=== PATIENT | male | born 1995 | race Caucasian/White ===

== ENCOUNTER 2020-09-13 02:38 | Inpatient (IN) ==
[2020-09-13] MEDS ORDERED: SODIUM CHLORIDE 0.9% 1,000 ML IV STA ×2 (02:45→03:34)
[2020-09-13] MEDS ORDERED: ROCURONIUM 100 MG/10 ML VIAL IV STA (02:46)
[2020-09-13] MEDS ORDERED: ETOMIDATE 20 MG/10 ML VIAL IV STA (02:46)
[2020-09-13 02:56] LABS: Basophils # 0.2 10*3/uL (0.0-0.2); Basophils % 0.4 % (0.0-0.8); Eosinophils # 0.4 10*3/uL (0.0-0.87); Eosinophils % 0.9 % (0.00-10.9); Hematocrit 49.9 VOL% (42.0-52.0); Hemoglobin 17.5 GM/DL (14.0-18.0); Immature Granulocytes % 3.3 %; Immature Granulocytes Absolute 1.67 #; Lymphocytes # 11.9 10*3/uL (1.4-4.0); Lymphocytes % 23.8 % (21.2-54.2); Mean Corpuscular HGB Conc 35.1 GM/DL (32-36); Mean Corpuscular Volume 86.8 FL (87-102); NRBC # 0.02 10*3/uL; Neutrophils % 66.6 % (38.7-73.9); Platelet Count 410 T/CUMM (130-400); Red Blood Count 5.75 MC/CUMM (3.8-5.5); Red Cell Distribution Width 12.3 % (9.3-17.3)
[2020-09-13 03:02] LABS: White Blood Count 50.1 T/CUMM (4-12)
[2020-09-13] MEDS ORDERED: PIPERACILLIN/TAZOBACTAM 3,375 MG in SODIUM CHLORIDE 0.9% 100 ML IV STA (03:04)
[2020-09-13 03:12] LABS: Alanine Aminotransferase 34 U/L (16-61); Albumin 4.2 G/DL (3.4-5.0); Alkaline Phosphatase 75 U/L (45-117); Aspartate Amino Transferase 51 U/L (0-37); Blood Urea Nitrogen 16 MG/DL (7-18); Calcium 8.2 MG/DL (8.5-10.1); Estimated Glom Filtration Rate 63 ML/MIN; Glucose 267 MG/DL (74-106); Total Protein 7.3 G/DL (6.4-8.3)
[2020-09-13 03:15] LABS: Bilirubin,Urine Negative (Negative); Blood, Urine Negative (Negative); Glucose,Urine (UA) Negative (Negative); Hyaline Casts,Urine 1 /LPF (0-3); Ketones,Urine Negative (Negative); Mucus,Urine Occasional /LPF (Occasional); Nitrite,Urine Negative (Negative); Protein,Urine Negative; RBC,Urine <1 /HPF (0-4); Urine Appearance CLEAR (Clear); Urine Color Yellow (Yellow); Urine Specific Gravity 1.019 (1.001-1.035); Urine Urobilinogen < 2.0 EU/DL (0.2-1.0); WBC,Urine <1 /HPF (0-6)
[2020-09-13 03:16] LABS: ABG Base Excess -7.1 MMOL/L (-2.5-2.5); ABG HCO3 18.5 MMOL/L (20-26); ABG Oxygen Saturation 86.3 % (95-100); ABG PO2 68.1 MM HG (80-95); ABG TCO2 23.3 MMOL/L (23-27); Allen Test Positive; Pt O2 Delivery Device Ventilator
[2020-09-13 03:19] LABS: ABG PH 7.122 (7.35-7.45)
[2020-09-13 03:27] LABS: Barbiturates Screen,Urine Negative (Negative); Benzodiazepines Screen,Urine Positive (Negative); Cannabinoid Screen,Urine Positive (Negative); Opiate Screen,Urine Negative (Negative); Phencyclidine Screen,Urine Negative (Negative)
[2020-09-13] MEDS ORDERED: ONDANSETRON 4 MG/2 ML VIAL IV PRN (04:00)
[2020-09-13] MEDS ORDERED: ALBUTEROL 2.5 MG/3 ML NEB RESP TX PRN (04:00)
[2020-09-13 04:13] LABS: Band Neutrophils 12 % (0-10); Eosinophils 1 % (0-10); Lymphocytes 26 % (20-55); Metamyelocytes 1 %; Segmented Neutrophils 53 % (50-85); Total Cells Counted 100
[2020-09-13 04:16] LABS: Platelet Estimate Normal
[2020-09-13] MEDS: SODIUM CHLORIDE 0.9% 1,000 ML IV SCH ×3 (05:01→21:06)
[2020-09-13 05:07] LABS: ABG Base Excess -8.2 MMOL/L (-2.5-2.5); ABG HCO3 20.5 MMOL/L (20-26); ABG PCO2 54.7 MM HG (35-48); ABG TCO2 22.1 MMOL/L (23-27); Allen Test Positive; Pt O2 Delivery Device Ventilator
[2020-09-13 05:09] LABS: ABG PH 7.191 (7.35-7.45)
[2020-09-13] MEDS ORDERED: SODIUM BICARBONATE 50 MEQ/50 ML VIAL IV STA (05:12)
[2020-09-13] MEDS ORDERED: POTASSIUM CHLORIDE RIDER 10 MEQ in PREMIX 1 EACH IV PRN (05:46)
[2020-09-13 09:35] LABS: Allen Test Positive; Pt O2 Delivery Device Ventilator
[2020-09-13 09:37] LABS: ABG HCO3 24.9 MMOL/L (20-26); ABG Oxygen Saturation 93.1 % (95-100); ABG PCO2 56.2 MM HG (35-48); ABG PH 7.264 (7.35-7.45); ABG PO2 73.1 MM HG (80-95); ABG TCO2 26.6 MMOL/L (23-27)
[2020-09-13] MEDS ORDERED: MIDAZOLAM 2 MG/2 ML VIAL IV ONE (10:15)
[2020-09-13] MEDS ORDERED: MIDAZOLAM 2 MG/2 ML VIAL ONE (10:21)
[2020-09-13] MEDS: PIPERACILLIN/TAZOBACTAM 3,375 MG in SODIUM CHLORIDE 0.9% 100 ML IV SCH ×2 (11:16→18:02)
[2020-09-13] MEDS: POTASSIUM CHLORIDE 20 MEQ/15 ML UDCUP PER TUBE SCH ×4 (11:16→21:05)
[2020-09-13] MEDS: methylPREDNISolone SOD SUC 40 MG/1 ML VIAL IV SCH ×2 (11:22→18:03)
[2020-09-13] MEDS: MIDAZOLAM 100 MG in SODIUM CHLORIDE 0.9% 80 ML IV PRN (11:45)
[2020-09-14] MEDS: methylPREDNISolone SOD SUC 40 MG/1 ML VIAL IV SCH ×3 (01:37→18:21)
[2020-09-14] MEDS: PIPERACILLIN/TAZOBACTAM 3,375 MG in SODIUM CHLORIDE 0.9% 100 ML IV SCH ×3 (04:00→18:21)
[2020-09-14] MEDS: MIDAZOLAM 100 MG in SODIUM CHLORIDE 0.9% 80 ML IV PRN (04:15)
[2020-09-14 05:01] LABS: Basophils % 0.1 % (0.0-0.8); Hematocrit 38.6 VOL% (42.0-52.0); Hemoglobin 13.4 GM/DL (14.0-18.0); Immature Granulocytes % 0.7 %; Immature Granulocytes Absolute 0.05 #; Lymphocytes # 0.4 10*3/uL (1.4-4.0); Lymphocytes % 5.1 % (21.2-54.2); Mean Corpuscular HGB Conc 34.7 GM/DL (32-36); Mean Corpuscular Volume 86.5 FL (87-102); Mean Platelet Volume 9.3 FL (9.6-12.0); Monocytes % 2.9 % (1.7-12.7); Neutrophils % 91.2 % (38.7-73.9); Platelet Count 137 T/CUMM (130-400); Red Blood Count 4.46 MC/CUMM (3.8-5.5); Red Cell Distribution Width 12.8 % (9.3-17.3); White Blood Count 6.9 T/CUMM (4-12)
[2020-09-14] MEDS: SODIUM CHLORIDE 0.9% 1,000 ML IV SCH ×3 (05:01→20:34)
[2020-09-14 05:19] LABS: Calcium 7.6 MG/DL (8.5-10.1)
[2020-09-14 05:20] LABS: Band Neutrophils 13 % (0-10); Lymphocytes 8 % (20-55); Myelocytes 1 %; Segmented Neutrophils 75 % (50-85); Total Cells Counted 100
[2020-09-14 05:21] LABS: Hypochromasia 1+; Microcytosis 1+; Platelet Estimate Adequate
[2020-09-14 06:48] LABS: ABG Base Excess 0.4 MMOL/L (-2.5-2.5); ABG HCO3 24.8 MMOL/L (20-26); ABG Oxygen Saturation 98.6 % (95-100); ABG PCO2 51.4 MM HG (35-48); ABG PH 7.332 (7.35-7.45)
[2020-09-14] MEDS ORDERED: MAGNESIUM SULF RIDER 2 GM in PREMIX 1 EACH IV ONE ×2 (10:47→14:00)
[2020-09-14] MEDS ORDERED: MORPHINE 4 MG/1 ML VIAL IV PRN (20:15)
[2020-09-15] MEDS: PIPERACILLIN/TAZOBACTAM 3,375 MG in SODIUM CHLORIDE 0.9% 100 ML IV SCH ×3 (02:29→18:06)
[2020-09-15] MEDS: methylPREDNISolone SOD SUC 40 MG/1 ML VIAL IV SCH ×3 (02:29→18:06)
[2020-09-15] MEDS: SODIUM CHLORIDE 0.9% 1,000 ML IV SCH (04:18)
[2020-09-15 04:40] LABS: Allen Test Positive; Pt O2 Delivery Device Ventilator
[2020-09-15 04:41] LABS: ABG Base Excess 3.2 MMOL/L (-2.5-2.5); ABG HCO3 27.1 MMOL/L (20-26); ABG Oxygen Saturation 89.5 % (95-100); ABG PH 7.404 (7.35-7.45); ABG PO2 55.3 MM HG (80-95); ABG TCO2 24.8 MMOL/L (23-27)
[2020-09-15 05:06] LABS: Basophils % 0.1 % (0.0-0.8); Eosinophils % 0.1 % (0.00-10.9); Hematocrit 34.9 VOL% (42.0-52.0); Immature Granulocytes % 8.1 %; Immature Granulocytes Absolute 0.68 #; Lymphocytes # 0.4 10*3/uL (1.4-4.0); Lymphocytes % 5.1 % (21.2-54.2); Mean Corpuscular HGB Conc 34.4 GM/DL (32-36); Mean Corpuscular Volume 87.3 FL (87-102); Mean Platelet Volume 9.8 FL (9.6-12.0); Monocytes % 4.4 % (1.7-12.7); Neutrophils % 82.2 % (38.7-73.9); Platelet Count 144 T/CUMM (130-400); Red Cell Distribution Width 12.6 % (9.3-17.3); White Blood Count 8.4 T/CUMM (4-12)
[2020-09-15 05:17] LABS: Albumin 2.8 G/DL (3.4-5.0); Bilirubin,Direct 0.48 MG/DL (0.0-0.20); Bilirubin,Indirect 1.1 MG/DL (0.0-1.0); Bilirubin,Total 1.6 MG/DL (0.2-1.0); Calcium 8.5 MG/DL (8.5-10.1); Osmolality,Calculated 282.3 MOS/KG (273-304); Total Protein 5.9 G/DL (6.4-8.3)
[2020-09-15 05:28] LABS: Band Neutrophils 4 % (0-10); Eosinophils 1 % (0-10); Lymphocytes 7 % (20-55); Metamyelocytes 1 %; Segmented Neutrophils 84 % (50-85); Total Cells Counted 100
[2020-09-15 05:29] LABS: Hypochromasia 1+; Microcytosis 1+; Platelet Estimate Adequate
[2020-09-15 09:25] LABS: ABG Base Excess 2.9 MMOL/L (-2.5-2.5); ABG HCO3 26.9 MMOL/L (20-26); ABG Oxygen Saturation 92.9 % (95-100); ABG PH 7.398 (7.35-7.45); ABG TCO2 24.9 MMOL/L (23-27); Allen Test Positive; Pt O2 Delivery Device Ventilator
[2020-09-15] MEDS ORDERED: FUROSEMIDE 40 MG/4 ML VIAL IV ONE (09:49)
[2020-09-16] MEDS: methylPREDNISolone SOD SUC 40 MG/1 ML VIAL IV SCH (02:22)
[2020-09-16] MEDS: PIPERACILLIN/TAZOBACTAM 3,375 MG in SODIUM CHLORIDE 0.9% 100 ML IV SCH ×3 (02:23→18:21)
[2020-09-16] MEDS ORDERED: methylPREDNISolone SOD SUC 40 MG/1 ML VIAL IV SCH (08:30)
[2020-09-16] MEDS: predniSONE 20 MG TABLET PO SCH (09:40)
[2020-09-16] MEDS: ALBUTEROL 2.5 MG/3 ML NEB RESP TX SCH ×2 (14:01→19:15)
[2020-09-17] MEDS: ALBUTEROL 2.5 MG/3 ML NEB RESP TX SCH ×4 (01:40→18:59)
[2020-09-17] MEDS: PIPERACILLIN/TAZOBACTAM 3,375 MG in SODIUM CHLORIDE 0.9% 100 ML IV SCH ×3 (03:37→18:30)
[2020-09-17 05:03] LABS: Basophils # 0.1 10*3/uL (0.0-0.2); Basophils % 0.4 % (0.0-0.8); Eosinophils % 0.2 % (0.00-10.9); Hematocrit 38.9 VOL% (42.0-52.0); Hemoglobin 13.5 GM/DL (14.0-18.0); Immature Granulocytes % 2.1 %; Immature Granulocytes Absolute 0.26 #; Lymphocytes # 1.8 10*3/uL (1.4-4.0); Mean Corpuscular HGB Conc 34.7 GM/DL (32-36); Mean Corpuscular Volume 85.3 FL (87-102); Mean Platelet Volume 8.8 FL (9.6-12.0); Neutrophils % 77.3 % (38.7-73.9); Platelet Count 184 T/CUMM (130-400); Red Blood Count 4.56 MC/CUMM (3.8-5.5); Red Cell Distribution Width 12.1 % (9.3-17.3); White Blood Count 12.6 T/CUMM (4-12)
[2020-09-17 05:21] LABS: Calcium 8.5 MG/DL (8.5-10.1); Osmolality,Calculated 285.1 MOS/KG (273-304)
[2020-09-17] MEDS ORDERED: POTASSIUM CHLORIDE 20 MEQ TABLET PO ONE ×2 (06:32→08:30)
[2020-09-17] MEDS ORDERED: MAGNESIUM HYDROXIDE SUSP 30 ML UDCUP PO PRN (06:48)
[2020-09-17] MEDS: predniSONE 20 MG TABLET PO SCH ×2 (09:18→22:17)
[2020-09-17] MEDS: LOSARTAN 50 MG TABLET PO SCH (09:18)
[2020-09-18] MEDS: ALBUTEROL 2.5 MG/3 ML NEB RESP TX SCH ×4 (00:52→19:02)
[2020-09-18] MEDS: PIPERACILLIN/TAZOBACTAM 3,375 MG in SODIUM CHLORIDE 0.9% 100 ML IV SCH (03:11)
[2020-09-18 05:41] LABS: Eosinophils # 0.2 10*3/uL (0.0-0.87); Eosinophils % 2.4 % (0.00-10.9); Hematocrit 43.3 VOL% (42.0-52.0); Hemoglobin 15.2 GM/DL (14.0-18.0); Immature Granulocytes % 10.7 %; Immature Granulocytes Absolute 0.97 #; Lymphocytes # 2.1 10*3/uL (1.4-4.0); Lymphocytes % 22.6 % (21.2-54.2); Mean Corpuscular HGB Conc 35.1 GM/DL (32-36); Mean Corpuscular Volume 85.2 FL (87-102); Mean Platelet Volume 9.2 FL (9.6-12.0); Monocytes % 10.2 % (1.7-12.7); Neutrophils % 54.1 % (38.7-73.9); Platelet Count 186 T/CUMM (130-400); Red Blood Count 5.08 MC/CUMM (3.8-5.5); Red Cell Distribution Width 12.1 % (9.3-17.3); White Blood Count 9.1 T/CUMM (4-12)
[2020-09-18 06:05] LABS: Atypical Lymphocytes Few; Eosinophils 1 % (0-10); Lymphocytes 32 % (20-55); Segmented Neutrophils 62 % (50-85); Total Cells Counted 100
[2020-09-18 06:06] LABS: Hypochromasia 1+; Microcytosis 1+
[2020-09-18 06:07] LABS: Ovalocytes Slight; Platelet Estimate Adequate
[2020-09-18 06:11] LABS: Calcium 8.6 MG/DL (8.5-10.1); Osmolality,Calculated 278.4 MOS/KG (273-304)
[2020-09-18] MEDS: POTASSIUM CHLORIDE 20 MEQ TABLET PO PRN ×4 (06:43→17:33)
[2020-09-18] MEDS: LOSARTAN 50 MG TABLET PO SCH (08:17)
[2020-09-18] MEDS: predniSONE 20 MG TABLET PO SCH (08:50)
[2020-09-18] MEDS: POTASSIUM CHLORIDE RIDER 10 MEQ in PREMIX 1 EACH IV SCH ×4 (10:35→23:01)
[2020-09-18] MEDS: AMOXICILLIN/CLAV 500 MG TABLET PO SCH (21:04)
[2020-09-19] MEDS: ALBUTEROL 2.5 MG/3 ML NEB RESP TX SCH ×2 (00:14→07:05)
[2020-09-19] MEDS: amLODIPine 5 MG TABLET PO SCH ×2 (04:51→08:58)
[2020-09-19 07:18] LABS: Calcium 8.7 MG/DL (8.5-10.1)
[2020-09-19] MEDS: POTASSIUM CHLORIDE 20 MEQ TABLET PO PRN (08:58)
[2020-09-19] MEDS: AMOXICILLIN/CLAV 500 MG TABLET PO SCH (08:58)
[2020-09-19] MEDS: predniSONE 20 MG TABLET PO SCH (08:58)
[2020-09-19] MEDS ORDERED: LOSARTAN 50 MG TABLET PO SCH (09:00)
[2020-09-19 09:19] VITALS: BP 179/97
== END 2020-09-19 10:08 | disposition home or self-care (01) | DRG 917 ==
LOC: EDUNIT# → EDBD → N.ED 02:38 → SUATTDRO 04:00 → N.EDINP 04:00 → N.ICU 06:49 → N.TELES 09-16 13:12
PROVIDERS: ADMIT Phlebology; ATTEND Family Medicine